=== PATIENT | female | born 1970 | race Two or more races ===

== ENCOUNTER → 2024-10-12 | Outpatient (CLI) | payer MEDICARE, MEDICAID, SELFPAY ==
--- NOTE | 2024-10-12 08:30 | XR_ITS ---
Examination: MRI lumbar spine without contrast Date and time of exam: October 12, 2024 1021 hours Comparison August 27, 2022 INDICATIONS: Worsening back pain post lumbar spine surgery February 2024, currently radiating down both legs, difficulty walking Technique: Multiple MRI axial and sagittal sections lumbar spine. Sagittal T2-weighted images, TR 3500, TE 118 T1 weighted transverse sections, TR 688 T8.5, T2-weighted sagittal sections T1 weighted sagittal sections TR 621, TE 30 T2 axial sections, TR 4, 190, TE 84. Findings: Adequate alignment lumbar vertebral bodies on the lateral view Magnetic susceptibility artifact secondary to transpedicular fixation screws L4-S1 Satisfactory alignment at this level L5-S1 no disc protrusion L4-L5 no disc protrusion L3-L4 3 mm central disc bulge L2-L3 no disc protrusion L1-L2 no disc protrusion IMPRESSION: Lower lumbar fusion with satisfactory alignment L3-L4 3 mm central lumbar disc bulge
== END | disposition home or self-care (01) ==
PROVIDERS: PCP Physician Assistant; Referring Provider Orthopaedic Surgery Orthopaedic Surgery of the Spine; Visit Provider Orthopaedic Surgery Orthopaedic Surgery of the Spine
DX: M51.369 Other intervertebral disc degeneration, lumbar region without mention of lumbar back pain or lower extremity pain (principal); Z47.89 Encounter for other orthopedic aftercare
CPT/HCPCS: 72148

== ENCOUNTER → 2024-12-26 | Outpatient (CLI) | payer MEDICARE, MEDICAID, SELFPAY ==
--- NOTE | 2024-12-26 | XR_ITS ---
Examination:Left hip AP, lateral, AP pelvis 3 views Technique: Hip AP lateral, AP pelvis, 3 views Exam date and time:December 26, 2024 1310 hours INDICATIONS: Left hip pain beginning one year ago. FINDINGS: Moderate osteopenia No left hip fracture or dislocation Mild to moderate narrowing left hip joint Mild narrowing right hip joint IMPRESSION: No left hip fracture or dislocation Mild to moderate narrowing left hip joint.
--- NOTE | 2024-12-26 09:23 | XR_ITS ---
Examination: Lumbar spine, 5 views Technique: Lumbar spine AP, lateral, coned lateral lower lumbar spine, bilateral obliques 5 views Exam date and time: December 26, 2024 1039 hours INDICATION: Back pain one year. FINDINGS: Status post transpedicular fusion with disc spacers L4-S1 Anatomic alignment Moderate disc narrowing posteriorly L3-L4 No lumbar fracture IMPRESSION: Transpedicular lumbar stabilization with anatomic alignment Moderate disc narrowing posteriorly L3-L4
--- NOTE | 2024-12-26 09:23 | XR_ITS ---
Examination: Fingers, right hand second digit 3 views Technique: AP, oblique, lateral views right hand second digit 3 views. Exam date and time: December 26, 2024 1039 hours INDICATIONS: New onset right second digit pain this week FINDINGS: Prominent osteopenia Significant narrowing distal interphalangeal joint second digit No fracture or dislocation IMPRESSION: No fracture or dislocation
--- NOTE | 2024-12-26 09:23 | XR_ITS ---
Examination: Bilateral hands,6 views. Technique: AP, Oblique, Lateral each hand total 6 views Date and time of exam: October 28, 2024 1039 hours INDICATIONS: New onset bilateral hand pain this week Findings: Prominent osteopenia Advanced narrowing distal interphalangeal joints second through fifth digits bilaterally No fractures or cortical bone destruction No opaque foreign bodies IMPRESSION: Advanced narrowing distal interphalangeal joints second through fifth digits bilaterally No erosive arthritis No acute fractures
== END | disposition home or self-care (01) ==
PROVIDERS: PCP Physician Assistant; Referring Provider Orthopaedic Surgery Orthopaedic Surgery of the Spine; Visit Provider Orthopaedic Surgery Orthopaedic Surgery of the Spine
DX: M79.642 Pain in left hand (principal); M48.061 Spinal stenosis, lumbar region without neurogenic claudication; M25.842 Other specified joint disorders, left hand; M25.841 Other specified joint disorders, right hand; M25.852 Other specified joint disorders, left hip
CPT/HCPCS: 72110; 73130; 73140; 73502

== ENCOUNTER 2025-01-18 18:45 | Emergency (ER) | payer MEDICARE, MEDICAID, SELFPAY ==
[2025-01-18 19:33] VITALS: BP 129/63; PULSE 75; RESP 18; TEMP 36.6; O2SAT 97; BMI 32.9
--- NOTE | 2025-01-18 19:46 | EDNOTE_ITS ---
ED Back Injury Pain RME/HPI General Chief Complaint: Back Pain/Injury Stated Complaint: Back pain Time Seen by Provider: 01/18/25 18:46 Source: patient and family Arrival date/time: 01/18/25 18:45 This is a case of a 54-year-old female with history of lower back surgery last September patient is fine until 1 week prior to arrival in the emergency room patient was cleaning the house and noted to have lower back pain daughter states that the patient pain was getting worst thus decided to bring the mother here in the emergency room denies any numbness weakness tingling sensation or incontinence to urine or stool Limitations: no limitations Related Data Home Medications ?Medication ?Instructions ?Recorded ?Confirmed ibuprofen 800 mg tablet 800 mg PO BID 04/10/2006/24 oxybutynin chloride 10 mg 10 mg PO QDAY 06/24/2006/24 tablet,extended release 24 hr Previous Rx's ?Medication ?Instructions ?Recorded metoclopramide HCl 10 mg tablet 10 mg PO Q6H PRN nause a and 09/28/21 (Reglan) vomiting #14 tabs cyclobenzaprine 10 mg tablet 10 mg PO BID #10 tabs 06/06 tramadol 50 mg tablet 50 mg PO Q8H PRN pain #20 ta bs 01/18/25 Allergies Allergy/AdvReac Type Severity Reaction Status Date / Time metronidazole Allergy Verified 01/18/25 18:49 Review of Systems Constitutional Constitutional: Reports system reviewed and no additional complaints, except as documented ENT Ears, Nose, Mouth, and Throat: Denies neck pain Cardiovascular Cardiovascular: Reports system reviewed and no additional complaints, except as documented Respiratory Respiratory: Reports system reviewed and no additional complaints, except as documented Gastrointestinal Gastrointestinal: Reports system reviewed and no additional complaints, except as documented Musculoskeletal Musculoskeletal: Reports as per HPI, Denies abnormal gait, Denies arthralgias, Denies atrophy, Reports back pain, Denies deformity, Denies joint swelling, Denies limited range of motion, Denies loss of height, Denies muscle cramps, Denies muscle weakness, Denies myalgias, Denies neck pain, Denies numbness, Denies radiating pain into limb, Denies stiffness and Denies tingling Neurologic Neurologic: Reports system reviewed and no additional complaints, except as documented, Denies abnormal gait, Denies numbness and Denies tingling Past Medical History Past Medical History CARDIAC: Positive Hypertension; Negative Congestive Heart Failure RESPIRATORY: Negative Chronic Obstructive Pulmonary Disease (COPD) GENITOURINARY: Negative Renal Disease ENT: Negative Glaucoma ENDOCRINE: Negative Diabetes Mellitus Type 1 or Diabetes Mellitus Type 2 HEMATOLOGIC: Negative Blood Disorders Social History SMOKING STATUS: Never smoker ED Exam General Limitations: Present no limitations General appearance: Present alert and in no apparent distress Head Head exam: Present atraumatic Eye Eye exam: Present normal appearance, PERRL and EOMI ENT ENT exam: Present normal exam, normal oropharynx and mucous membranes moist Neck Neck exam: Present normal inspection, full ROM and trachea midline Chest Chest inspection: Present normal inspection and symmetric chest wall rise Respiratory Respiratory exam: Present normal lung sounds bilaterally Cardiovascular Cardiovascular exam: Present regular rate, normal rhythm and normal heart sounds Abdominal Exam Abdominal exam: Present soft and normal bowel sounds Extremities Exam Extremities exam: Present normal inspection and full ROM Back Exam Back exam: Present tenderness (Noted tenderness to L1-L5) and other; Absent CVA tenderness (R), CVA tenderness (L), muscle spasm, paraspinal tenderness, vertebral tenderness, sciatic notch tenderness (R), sciatic notch tenderness ( L), straight leg raise (R) or straight leg raise (L) Neurological Exam Neurological exam: Present alert, oriented X3, CN II-XII intact, reflexes normal and other (Patient is using walker for ambulation); Absent motor sensory deficit Psychiatric Psychiatric exam: Present normal affect and normal mood Skin Skin exam: Present warm, dry, intact and normal color Course Quality Measures none Orders Category Date Time Status CT lumbar spine wo con Stat Exams 01/18/25 19:46 Completed HYDROcodone*/APAP 5/325 [Living[place] 5/325] Med 01/18/25 19:46 Discontinued 1 tab PO X1 ONE Ketorolac Inj [Toradol Inj] Med 01/18/25 19:46 Discontinued 30 mg IM X1 ONE Vital Signs Vital signs: Vital Signs Temperature 98 F 01/18/25 19:33 Pulse Rate 75 01/18/25 19:33 Respiratory Rate 18 01/18/25 19:33 Blood Pressure 129/63 01/18/25 19:33 Pulse Oximetry (%) 97 01/18/25 19:33 Oxygen Delivery Method Room Air 01/18/25 19:33 Oxygen saturation is 97% in room air WNL Back Pain / Injury MDM Narrative MDM Narrative:: This is a case of a 54-year-old female with history of chronic low back pain and back surgery came in in the emergency room due to worsening pain of the lower back after working at home patient denies any recent injury or trauma denies any numbness weakness tingling sensation incontinence to urine or stool patient physical examination patient is awake alert oriented not in distress using walker for ambulation not tachycardic not tachypneic afebrile and not hypoxic at the time of exam no signs and symptoms of cauda equina noted a mild to moderate tenderness on L1-L5 but no paraspinal tenderness no vertebral tenderness no CVA tenderness straight leg exam is negative no CVA tenderness CT scan showed normal patient have a back fusion which is intact patient was given Toradol and [place] here in the emergency room after 30 minutes patient was reassessed back pain noted to be decreased patient is able to move his all extremities with no difficulty patient and the daughter was advised to follow-up with PCP in 2 days to need to return to the neurosurgeon for further evaluation and treatment of chronic low back pain and pain management doctor for pain control for any recurrence worsening symptoms or any emergent concern return to the emergency room immediately or call 911 patient and the daughter agreed with the treatment plan and discharge Patient data External records reviewed:: [facility] previous records Clinical information provided by:: patient and family Social determinants that could affect healthcare access:: none Patient has the following chronic illnesses:: Chronic low back pain How is presenting disease/condition affected by chronic disease/condition?: no chronic disease Evaluation data The following diagnostics were reviewed and interpreted by me:: radiology exam(s) Lab and/or radiology exams considered but not ordered:: Reviewed Interpretation Summary: Normal Medications / Prescriptions Medications or Prescriptions considered but not ordered:: Given Medication administrations:: Medication Administration History Discontinued Medications Hydrocodone Bitart/Acetaminophen (Hydrocodone/Apap 5/325 Tablet) 1 tab PO X1 ONE Stop: 01/18/25 19:47 Ketorolac Tromethamine (Ketorolac Inj 60 Mg/2 Ml Vial) 30 mg IM X1 ONE Stop: 01/18/25 19:47 Given Consultations Consultation(s) initiated? (list below): No Diagnosis Differential diagnosis back pain/injury: lumbar radiculopathy, sciatica and strain of lumbar region Most likely diagnosis given after review of the tests above:: Chronic low back pain back muscle spasm Admission Indicated Admission indicated?: not indicated Admission Request Was there a request for admission?: No Disposition Plan Disposition Plan: Discharge Discharge Attestation Discharge Attestation: The patient and all family members were given an opportunity to ask questions and understood the discharge instructions. Discharge instructions specifically effects, indications for sooner follow up or return to the emergency department, and the expected course of current diagnosis. Patient condition: Stable Discharge Plan Plan Patient Disposition: HOME (Self Care) Discharge Disposition comment: stable Prescriptions/Referrals Prescriptions/Med Rec: New tramadol 50 mg tablet 50 mg PO Q8H PRN (Reason: pain) Qty: 20 0RF Rx Instructions: don not take with flexeril cyclobenzaprine 10 mg tablet 10 mg PO BID MDD 2 tabs per day Qty: 10 0RF No Action ibuprofen 800 mg tablet 800 mg PO BID oxybutynin chloride 10 mg tablet extended release 24hr 10 mg PO QDAY metoclopramide HCl [Reglan] 10 mg tablet 10 mg PO Q6H PRN (Reason: nausea and vomiting) Qty: 14 0RF Referrals: Lizbeth Puentes PA-C [Primary Care Provider] - In 1 week Problem List Clinical Impression: Chronic lower back pain, Muscle spasm Patient/Caregiver Discharge Instructions Education Materials: Managing Chronic Pain, ED Back Spasm, No Trauma, ED Chronic Pain Additional Instructions: Follow-up with your primary care physician in 2 days for reevaluation follow-up with your neurosurgeon for your chronic low back pain and possible MRI to rule out spinal stenosis as suggested by the radiologist and follow-up with your pain management doctor for pain control ice pack and warm compress as needed for your pain Print Language: Bolivian Stand Alone Forms: Huong Award Info., Patient Portal Info Letter HAY/MABEL Supervising Physician PETE Supervising Physician: Dr Dunn
--- NOTE | 2025-01-18 19:46 | XR_ITS ---
Examination: CT lumbar spine, without contrast. 2-D sagittal reconstructions. 2-D coronal reconstructions. 3-D reconstructions. Date and time of exam:At 2010 hours Comparison February INDICATIONS: Onset lower back pain today, history back surgery CTDI: vol (mGy):28.6 DLP: (mGycm):7 Technique: Multiple 1.25 mm axial sections of the lumbar spine without intravenous contrast have been obtained. 2-D sagittal and coronal reconstructions have been obtained. 3-D reconstructions have been obtained. Low dose protocols were performed. One or more of the following dose reduction techniques were used; automated exposure control, adjustment of the mA and/or KV according to patient size, use of iterative reconstruction technique. Findings: Transpedicular lumbar fusion L4-S1 with satisfactory alignment, disc spacers No lumbar fracture No significant lumbar disc narrowing above the fusion site L5-S1 no disc protrusion L4-L5 no disc protrusion L3-L4 no disc protrusion L2-L3 no disc protrusion L1-L2 no disc protrusion IMPRESSION: Transpedicular lumbar fusion L4-S1 with satisfactory alignment No acquired soft tissue spinal stenosis detected If pain persists, CT lumbar myelography would best assess for spinal stenosis
[2025-01-18] MEDS: KETOROLAC INJ 60 MG/2 ML VIAL 30 MG IM (22:00)
[2025-01-18] MEDS: HYDROcodone/APAP 5/325 TABLET 1 TAB PO (22:00)
== END 2025-01-18 22:00 | disposition home or self-care (01) ==
PROVIDERS: Emergency Provider Emergency Medicine; PCP Physician Assistant
DX: G89.29 Other chronic pain (principal); M54.50 Low back pain, unspecified; M62.838 Other muscle spasm
CPT/HCPCS: 72131; 96372; 99284; J1885; A9270

== ENCOUNTER → 2025-06-25 | Outpatient (CLI) | payer MEDICARE, MEDICAID, SELFPAY ==
--- NOTE | 2025-06-25 13:00 | XR_ITS ---
Examination: CT lumbar spine, without contrast. 2-D sagittal reconstructions. 2-D coronal reconstructions. 3-D reconstructions. Date and time of exam: June 25, 2025, 1324 hours INDICATIONS: Back pain post surgery October 05, 2024 COMPARISON: January 18, 2025 CTDI: vol (mGy): 37.3 DLP: (mGycm): 1254 Technique: Multiple 1.25 mm axial sections of the lumbar spine without intravenous contrast have been obtained. 2-D sagittal and coronal reconstructions have been obtained. 3-D reconstructions have been obtained. Low dose protocols were performed. One or more of the following dose reduction techniques were used; automated exposure control, adjustment of the mA and/or KV according to patient size, use of iterative reconstruction technique. Findings: Transpedicular lumbar fusion L4-S1 with anatomic alignment, disc spacers No vertebral body fracture Lumbar pedicles, laminae transverse and posterior spinous processes intact Axial images demonstrate no focal lumbar disc protrusion IMPRESSION: Transpedicular lumbar fusion L4-S1 with anatomic alignment No focal lumbar disc protrusion
== END | disposition home or self-care (01) ==
LOC: CCTX 13:08
PROVIDERS: Referring Provider Nurse Practitioner; Visit Provider Nurse Practitioner
DX: M43.27 Fusion of spine, lumbosacral region (principal)
CPT/HCPCS: 72131

== ENCOUNTER → 2025-08-30 | Outpatient (CLI) | payer MEDICARE, MEDICAID, SELFPAY ==
--- NOTE | 2025-08-30 | XR_ITS ---
EXAMINATION: Lumbar spine 3 views TECHNIQUE: AP lateral: Lateral lower lumbar spine 3 views Date and time: August 30, 2025, 1354 hours, comparison December 26, 2024 INDICATIONS: Low back surgery 2 years ago FINDINGS: Stable alignment lumbar fusion, with transpedicular fixation screws, L4-S1 with disc spacers No lumbar fracture Intact pedicles IMPRESSION: Anatomic alignment lumbar fusion L4-S1
== END | disposition home or self-care (01) ==
LOC: CDIM 13:13
PROVIDERS: PCP Physician Assistant; Referring Provider Orthopaedic Surgery; Visit Provider Orthopaedic Surgery
DX: M43.27 Fusion of spine, lumbosacral region (principal)
CPT/HCPCS: 72100